=== PATIENT | female | born 1995 | race Hispanic/Latino ===

== ENCOUNTER 2017-08-05 07:24 | Emergency (ER) | payer MEDICAID, SELFPAY ==
[~2017-08-05] VITALS: Ht 157.5 cm; Wt 92.0 kg
[2017-08-05 07:25] VITALS: BP 116/70
[2017-08-05] MEDS ORDERED: KETOROLAC 30 MG/ML VIAL (J1885) IV ONE (08:00)
[2017-08-05 08:11] LABS: BASO % 0.2 % (0.0-1.0); EOS # 0.2 10^3/uL (0.0-0.50); EOS % 1.5 % (0.0-3.0); IMMATURE GRANULOCYTE % 0.4 % (0-0); LYMPH # 0.9 10^3/uL (1.5-6.5); LYMPH % 9.6 % (24.0-44.0); MEAN CORPUSCULAR HEMOGLOBIN 27.6 pg (27.0-33.0); MEAN CORPUSCULAR HGB CONC 32.8 g/dl (32.0-36.5); MEAN CORPUSCULAR VOLUME 84.1 fl (80.0-96.0); MONO # 0.5 10^3/uL (0.0-0.8); MONO % 5.4 % (0.0-5.0); NEUTROPHILS # 8.1 10^3/uL (1.8-7.7); NEUTROPHILS % 82.9 % (36.0-66.0); PLATELET COUNT, AUTOMATED 420 10^3/uL (150-450); RED CELL DISTRIBUTION WIDTH 13.2 % (11.5-14.5); WHITE BLOOD COUNT 9.8 10^3/uL (4.0-10.0)
[2017-08-05 08:34] LABS: ALBUMIN 4.4 GM/DL (3.2-5.2); ALBUMIN/GLOBULIN RATIO 1.38 (1.00-1.93); ALKALINE PHOSPHATASE 85 U/L (45-117); ALT/SGPT 24 U/L (12-78); ANION GAP 6 MEQ/L (8-16); AST/SGOT 18 U/L (7-37); BILIRUBIN,TOTAL 0.2 MG/DL (0.2-1.0); BLOOD UREA NITROGEN 10 MG/DL (7-18); CALCIUM LEVEL 9.5 MG/DL (8.5-10.1); CARBON DIOXIDE LEVEL 29 MEQ/L (21-32); CHLORIDE LEVEL 105 MEQ/L (98-107); CREATININE FOR GFR 0.59 MG/DL (0.55-1.02); GLUCOSE, FASTING 111 MG/DL (70-105); POTASSIUM SERUM 4.4 MEQ/L (3.5-5.1); SODIUM LEVEL 140 MEQ/L (136-145); TOTAL PROTEIN 7.6 GM/DL (6.4-8.2)
--- NOTE | 2017-08-05 08:51 | REP ---
Clinical: Acute epigastric and right upper quadrant abdominal pain. Technique: Ayala scale ultrasound using curved array transducer. Findings: Cholelithiasis is appreciated along with gallbladder wall thickening to approximately 5 mm. Trace pericholecystic fluid is also suspected and positive sonographic Delarosa's sign was elicited during examination. Findings are compatible with acute cholecystitis. No biliary ductal dilatation is appreciated and the common bile duct currently measures approximately 4.6 mm diameter. Fatty infiltration to the liver is appreciated without focal hepatic lesion. This lies portions of the pancreas are normal. The right kidney is normal in reniform shape without hydronephrosis and measures 9.1 x 5.3 x 4.2 cm (incidental column of [place] seen). Impression: Findings compatible with acute cholecystitis. Signed by Jj Beckman MD 08/05/2017 08:43 A
[2017-08-05] MEDS ORDERED: ULTR50TA8 PO (09:21)
[2017-08-05] MEDS ORDERED: LEVA750T7 PO (09:21)
[2017-08-05] MEDS ORDERED: REGL10TA6 PO (09:23)
== END 2017-08-05 09:31 | disposition home or self-care (01) ==
LOC: M ED 07:24
DX: K80.60 Calculus of gallbladder and bile duct with cholecystitis, unspecified, without obstruction (principal); Z87.891 Personal history of nicotine dependence; Z79.899 Other long term (current) drug therapy; Z88.0 Allergy status to penicillin
CPT/HCPCS: 76705; 80053; 81001; 81025; 83690; 85025; 86140; 96374; 99284; J1885

== ENCOUNTER 2017-08-09 05:40 | Emergency (ER) | payer MEDICAID ==
[~2017-08-09] VITALS: Ht 157.5 cm; Wt 81.8 kg
[2017-08-09 05:40] VITALS: BP 118/59
[~2017-08-09 05:40] MED LIST: LEVA750T7 PO; REGL10TA6 PO; ULTR50TA8 PO
== END 2017-08-09 07:15 | disposition left against medical advice (07) ==
LOC: M ED 05:40
DX: Z53.21 Procedure and treatment not carried out due to patient leaving prior to being seen by health care provider (principal)

== ENCOUNTER 2017-08-09 07:16 | Emergency (ER) | payer MEDICAID ==
[~2017-08-09] VITALS: Ht 157.5 cm; Wt 90.5 kg
[2017-08-09] MEDS ORDERED: NS 1,000 ML IV SCH (08:20)
[2017-08-09] MEDS ORDERED: KETOROLAC 30 MG/ML VIAL (J1885) IV ONE (08:30)
[2017-08-09 08:46] LABS: BASO % 0.1 % (0.0-1.0); EOS % 0.3 % (0.0-3.0); IMMATURE GRANULOCYTE % 0.3 % (0-0); LYMPH # 0.7 10^3/uL (1.5-6.5); LYMPH % 5.6 % (24.0-44.0); MEAN CORPUSCULAR HEMOGLOBIN 27.7 pg (27.0-33.0); MEAN CORPUSCULAR HGB CONC 33.6 g/dl (32.0-36.5); MEAN CORPUSCULAR VOLUME 82.5 fl (80.0-96.0); MONO # 0.3 10^3/uL (0.0-0.8); MONO % 2.6 % (0.0-5.0); NEUTROPHILS # 10.7 10^3/uL (1.8-7.7); NEUTROPHILS % 91.1 % (36.0-66.0); PLATELET COUNT, AUTOMATED 379 10^3/uL (150-450); RED CELL DISTRIBUTION WIDTH 13.2 % (11.5-14.5); WHITE BLOOD COUNT 11.7 10^3/uL (4.0-10.0)
[2017-08-09] MEDS ORDERED: MORPHINE 2 MG/ML 1ML SYRINGE IV ONE (09:00)
[2017-08-09 09:17] LABS: CONTROL LINE HCG INT CTR LINE PRESENT
[2017-08-09 09:23] LABS: ALBUMIN 4.1 GM/DL (3.2-5.2); ALBUMIN/GLOBULIN RATIO 1.05 (1.00-1.93); ALKALINE PHOSPHATASE 80 U/L (45-117); ALT/SGPT 23 U/L (12-78); ANION GAP 7 MEQ/L (8-16); AST/SGOT 21 U/L (7-37); BILIRUBIN,DIRECT < 0.1 MG/DL (0.0-0.2); BILIRUBIN,TOTAL 0.2 MG/DL (0.2-1.0); BLOOD UREA NITROGEN 12 MG/DL (7-18); CALCIUM LEVEL 8.9 MG/DL (8.5-10.1); CARBON DIOXIDE LEVEL 26 MEQ/L (21-32); CHLORIDE LEVEL 105 MEQ/L (98-107); CREATININE FOR GFR 0.62 MG/DL (0.55-1.02); GLUCOSE, FASTING 108 MG/DL (70-105); SODIUM LEVEL 138 MEQ/L (136-145)
--- NOTE | 2017-08-09 10:48 | REP ---
Clinical: Acute abdominal pain with history of cholelithiasis. Comparison: 08/05/2017. Technique: Ayala scale ultrasound using curved array transducer. Findings: Cholelithiasis is again noted with gallbladder wall thickening to 4.5 mm and is essentially unchanged from prior examination. No biliary ductal dilatation is appreciated and the common bile duct measures 3.4 mm diameter. The liver and pancreas are normal in contour, size, and echogenicity without focal hepatic or pancreatic lesions identified. The right kidney is normal in reniform shape without hydronephrosis and measures 9.4 x 5.7 x 3.7 cm. No ascites. Visualized portions of the abdominal aorta normal. Impression: Cholelithiasis and mild wall thickening essentially unchanged compared to prior examination. Common bile duct is within normal limits. Signed by Jj Beckman MD 08/09/2017 10:39 A
[2017-08-09 14:33] VITALS: BP 110/72
== END 2017-08-09 14:35 | disposition home or self-care (01) ==
LOC: EDBD 07:16 → M ED 07:16
DX: K80.50 Calculus of bile duct without cholangitis or cholecystitis without obstruction (principal)
CPT/HCPCS: 76705; 80048; 80076; 83690; 84703; 85025; 93041; 96374; 96375; 99284; J1885

== ENCOUNTER 2017-08-30 05:35 | Emergency (ER) | payer MEDICAID ==
[~2017-08-30] VITALS: Ht 157.5 cm; Wt 81.8 kg
[2017-08-30] MEDS ORDERED: KETO10TAB PO (05:44)
[2017-08-30] MEDS ORDERED: ONDANSETRON 4MG/2ML VIAL (J2405) IV ONE (06:15)
[2017-08-30] MEDS ORDERED: MORPHINE 4 MG/ML 1ML SYRINGE IV PRN (06:15)
[2017-08-30] MEDS ORDERED: NS 1,000 ML IV ONE (06:15)
[2017-08-30 06:22] LABS: BASO % 0.5 % (0.0-1.0); CONTROL LINE HCG INT CTR LINE PRESENT; EOS # 0.2 10^3/uL (0.0-0.50); EOS % 3.4 % (0.0-3.0); IMMATURE GRANULOCYTE % 0.2 % (0-0); LYMPH # 1.6 10^3/uL (1.5-6.5); MEAN CORPUSCULAR HEMOGLOBIN 28.2 pg (27.0-33.0); MEAN CORPUSCULAR VOLUME 85.4 fl (80.0-96.0); MONO # 0.6 10^3/uL (0.0-0.8); MONO % 8.6 % (0.0-5.0); NEUTROPHILS # 4.2 10^3/uL (1.8-7.7); NEUTROPHILS % 63.3 % (36.0-66.0); PLATELET COUNT, AUTOMATED 386 10^3/uL (150-450); RED CELL DISTRIBUTION WIDTH 13.2 % (11.5-14.5); WHITE BLOOD COUNT 6.5 10^3/uL (4.0-10.0)
[2017-08-30 06:36] LABS: ALBUMIN 4.2 GM/DL (3.2-5.2); ALBUMIN/GLOBULIN RATIO 1.17 (1.00-1.93); ALKALINE PHOSPHATASE 83 U/L (45-117); ALT/SGPT 21 U/L (12-78); AMYLASE 20 U/L (25-115); ANION GAP 8 MEQ/L (8-16); AST/SGOT 18 U/L (7-37); BILIRUBIN,DIRECT < 0.1 MG/DL (0.0-0.2); BILIRUBIN,TOTAL 0.2 MG/DL (0.2-1.0); BLOOD UREA NITROGEN 12 MG/DL (7-18); CARBON DIOXIDE LEVEL 24 MEQ/L (21-32); CHLORIDE LEVEL 109 MEQ/L (98-107); CREATININE FOR GFR 0.63 MG/DL (0.55-1.02); GLUCOSE, FASTING 102 MG/DL (70-105); POTASSIUM SERUM 4.3 MEQ/L (3.5-5.1); SODIUM LEVEL 141 MEQ/L (136-145); TOTAL PROTEIN 7.8 GM/DL (6.4-8.2)
--- NOTE | 2017-08-30 07:59 | REP ---
Abdominal right upper quadrant ultrasound: Comparisons are 08/09/2017 08/05/2017. The patient has known cholelithiasis. There is a negative Delarosa's sign to transducer pressure. There are numerous gallbladder calculi as previously. The gallbladder wall is mildly thickened measuring up to 3.7 mm. The gallbladder wall measured 4.5 mm 08/09/2017 and 4.5 ml on 08/05/2017. There is no intrahepatic or extrahepatic biliary duct dilatation. The common duct measures 3.4 mm in diameter. The hepatic parenchyma is homogeneous and otherwise unremarkable. The visualized portion of the pancreatic head is unremarkable. The body and tail are obscured by bowel gas. There is no right renal hydronephrosis, calculus, mass or cyst. The right kidney is normal size measuring 10.2 cm craniocaudad length. Impression: Cholelithiasis. Mild gallbladder wall thickening that has decreased compared to the recent prior studies. No biliary duct dilatation. No pericholecystic fluid. There is a negative Delarosa's sign to transducer pressure. Signed by Ab Pinedo MD 08/30/2017 07:50 A
[2017-08-30] MEDS ORDERED: NAPR500T PO (08:12)
[2017-08-30] MEDS ORDERED: OMEP20CA3 PO (08:12)
[2017-08-30 08:26] VITALS: BP 126/68
== END 2017-08-30 08:27 | disposition home or self-care (01) ==
LOC: M ED 05:35
DX: K80.70 Calculus of gallbladder and bile duct without cholecystitis without obstruction (principal); Z79.899 Other long term (current) drug therapy; Z88.0 Allergy status to penicillin
CPT/HCPCS: 76705; 80048; 80076; 81001; 82150; 83690; 84703; 85025; 96374; 96375; 99284; J2405

== ENCOUNTER 2017-09-24 06:06 | Day surgery (SDC) | payer MEDICAID ==
[2017-09-24] MEDS ORDERED: LR 1,000 ML IV ×2 (06:15→09:45)
[2017-09-24 06:42] LABS: CONTROL LINE UCG INT CTR LINE PRESENT; URINE PREG TEST NEGATIVE (NEGATIVE)
[2017-09-24] MEDS: LevoFLOXacin IV 500 MG in APPROPRIATE DILUENT 1 EA IV (06:55)
[2017-09-24] MEDS ORDERED: ROCURONIUM BROMIDE 50 MG/5 ML VIAL As Ordered (07:50)
[2017-09-24] MEDS ORDERED: PROPOFOL 200 MG/20 ML VIAL As Ordered (07:50)
[2017-09-24] MEDS ORDERED: LIDOCAINE 2% INJ 100 MG/5 ML SDV (FOR ANES.) As Ordered (07:50)
[2017-09-24] MEDS ORDERED: MIDAZOLAM INJ 2 MG/2 ML VIAL (J2250) As Ordered (07:50)
[2017-09-24] MEDS ORDERED: fentaNYL 250 MCG/5 ML INJECTION (J3010) As Ordered (07:50)
[2017-09-24] MEDS ORDERED: dexameTHASONE 4 MG/ML 1ML VIAL (J1100) As Ordered ×2 (07:51)
[2017-09-24] MEDS ORDERED: KETOROLAC 60 MG/2 ML VIAL (J1885) As Ordered (08:08)
[2017-09-24] MEDS ORDERED: NEOSTIGMINE 10 MG/10 ML VIAL (J2710) As Ordered (08:08)
[2017-09-24] MEDS ORDERED: ONDANSETRON 4MG/2ML VIAL (J2405) As Ordered ×2 (08:08→09:36)
[2017-09-24] MEDS ORDERED: GLYCOPYRROLATE INJ 0.2 MG/ML 2 ML VIAL As Ordered (08:08)
[2017-09-24] MEDS: BUPIVACAINE HCL 0.25% 30 ML VIAL As Ordered (08:13)
[2017-09-24] MEDS: LIDOCAINE 1% SDV INJ 30 ML VIAL As Ordered (08:13)
[2017-09-24] MEDS ORDERED: HYDROmorphone HCL 1 MG/ML SYRINGE (J1170) As Ordered (09:32)
[2017-09-24] MEDS: ONDANSETRON 4MG/2ML VIAL (J2405) IV (09:38)
[2017-09-24] MEDS: HYDROmorphone HCL 1 MG/ML SYRINGE (J1170) IV ×2 (09:40→09:48)
[2017-09-24] MEDS ORDERED: NORCO, ANEXSIA 5/325MG TABLET (HYDROcodone/ACETAMINOPHEN) PO ×2 (09:45)
[2017-09-24] MEDS ORDERED: ONDANSETRON 4MG/2ML VIAL (J2405) IV (09:45)
[2017-09-24] MEDS ORDERED: fentaNYL 100 MCG/2 ML INJECTION (J3010) IV (09:45)
[2017-09-24] MEDS ORDERED: METOCLOPRAMIDE INJ 10MG/2ML VIAL (J2765) As Ordered (09:49)
[2017-09-24] MEDS: METOCLOPRAMIDE INJ 10MG/2ML VIAL (J2765) IV (09:53)
[2017-09-24] MEDS: PERCOCET 5MG/325MG TAB PO (10:58)
[2017-09-24] MEDS ORDERED: KETOROLAC 30 MG/ML VIAL (J1885) IV (14:00)
== END 2017-09-24 12:10 | disposition home or self-care (01) ==
LOC: M SDC 06:06
DX: K80.12 Calculus of gallbladder with acute and chronic cholecystitis without obstruction (principal); R51 Headache; Z88.0 Allergy status to penicillin; Z79.899 Other long term (current) drug therapy; Z87.891 Personal history of nicotine dependence
CPT/HCPCS: 47562